=== PATIENT | female | born 1990 | race Caucasian/White ===

== ENCOUNTER 2016-10-28 06:37 | Inpatient (IN) | payer MEDICAID ==
[~2016-10-28] VITALS: Ht 170.2 cm; Wt 75.9 kg
--- NOTE | ~2016-10-28 | OR ---
PATIENT'S NAME: JUAN FONTANEZ [facility] AGE: 26 Y [address] ROOM: [place] [address] LOCATION: [facility] ADMIT DATE: 10/28/2016 OR/Procedure Report DISCHARGE DATE: FAMILY PHYSICIAN: PATRICE VELAZQUEZ MD ATTENDING PHYSICIAN: PATRICE VELAZQUEZ SURGEON: Patrice Velazquez MD [employer]SEM[employer]: DATE OF PROCEDURE: 10/29/2016 DATE OF DELIVERY: 10/29/2016. PREOPERATIVE DIAGNOSES: 1. Intrauterine at 41 weeks and 2 days. 2. Late term . 3. History of genital herpes. POSTOPERATIVE DIAGNOSES: 1. Intrauterine at 41 weeks and 2 days. 2. Late term . 3. History of genital herpes. PROCEDURE PERFORMED: Spontaneous vaginal delivery over intact perineum. ANESTHESIA: Epidural. FINDINGS: Viable female with Apgars of 7 and 9 and weight of 7 pounds, 14 ounces. First-degree perineal laceration. Placenta intact with 3-vessel cord. Bilateral periurethral lacerations. ESTIMATED BLOOD LOSS: 300 mL. COMPLICATIONS: None. INDICATIONS: The patient is a 26-year-old, G1, who presented to Labor and Delivery at 41 weeks and 1 day for induction of labor secondary to late term . She was found to be 250 and -2. She had 25 mcg of Cytotec placed vaginally. Four hours later, she was unchanged, but was stiven. Therefore, Pitocin was started for augmentation. At 1500 hours, she had rupture of membranes of clear fluid and was still unchanged. Pitocin was continued. She then progressed to complete and started maternal expulsive efforts. DESCRIPTION OF PROCEDURE: The patient was placed in dorsal lithotomy position. She was prepped and draped in the usual sterile fashion. With maternal expulsive effort, the head was delivered in the ANGUS position. PATIENT'S NAME: JUAN FONTANEZ [facility] AGE: 26 Y [address] ROOM: [place] [address] LOCATION: [facility] ADMIT DATE: 10/28/2016 OR/Procedure Report DISCHARGE DATE: FAMILY PHYSICIAN: PATRICE VELAZQUEZ MD ATTENDING PHYSICIAN: PATRICE VELAZQUEZ A loose nuchal cord was noted and easily reduced. The anterior shoulder then delivered followed by the remainder of the fetus. The was placed on the mother's abdomen. The cord was clamped and cut. Cord blood was obtained. The placenta was then delivered spontaneously intact with 3-vessel cord. A first-degree laceration was noted. It was repaired in the usual fashion with 3-0 Vicryl. Bilateral periurethral lacerations were noted and each repaired with 1 interrupted suture of 3-0 Vicryl. Instrument, sponge and needle counts were correct at the conclusion of the case. DISPOSITION: Mom stable. Baby in room with mom. MD ECHO PARDO/nathaniel /[id number] d: [birth year] t: 11/13/16 0925, OPERATIVE SUMMARY
[2016-10-28] MEDS ORDERED: TYLENOL EXTRA500 MG PO (08:39)
[2016-10-28] MEDS ORDERED: PRENATAL 1+1)(P1 TAB PO (08:39)
[2016-10-28] MEDS ORDERED: ZANTAC (NON-FO150 MG PO (08:40)
[2016-10-28] MEDS ORDERED: VALTREX1000 MG PO (08:40)
[2016-10-28 09:31] LABS: BASOPHIL % 0.3 %; EOSINOPHIL % 0.4 %; HEMATOCRIT 33.5 % (33.0-46.0); HEMOGLOBIN 11.5 g/dL (11.0-15.0); IMMATURE GRANULOCYTE # 0.1 K/uL (0.0-0.3); IMMATURE GRANULOCYTE % 0.7 %; LYMPHOCYTE # 1.8 K/uL (0.8-4.0); LYMPHOCYTE % 19.9 %; MCH 31.9 pg (27.0-34.0); MCHC 34.3 gm/dL (32.0-36.5); MCV 93.1 fl (83.0-98.0); MONOCYTE # 0.8 K/uL (0.0-1.0); MONOCYTE % 8.7 %; MPV 11.3 fl (9.4-12.4); NEUTROPHIL # (ANC) 6.4 K/uL (1.8-7.8); NRBC % 0 /100WBC (0-0.00); PLATELET COUNT 169 K/uL (150-450); RDW-CV 15.7 % (11.9-14.6); WBC 9.2 K/uL (4.0-11.0)
--- NOTE | 2016-10-28 18:00 | NUR ---
10/28/16 1800: Cytotec'ed this am. Iv Pitocin started @ 1245. Arom @ 1507,1.5 cm/50/-1 w/ arom-clear fluid. Vss,afeb. fhr 120 baseline. Ltv moderate,fhr accels.
--- NOTE | 2016-10-29 05:09 | NUR ---
VSS, fundus firm, lochia small, emptying bladder without difficulty. nothing for pain yet. up and tidy done. Inverted nipples so using shield.
--- NOTE | 2016-10-30 05:05 | NUR ---
VSS, used jacuzzi last night, tender/sore perineum & gave motrin & percocet @ 0410. Voiding without difficulty, fundus firm, lochia small. Using nipple shield for inverted nipples. Works well with infant.
[2016-10-30 05:08] LABS: BASOPHIL % 0.4 %; EOSINOPHIL # 0.1 K/uL (0.0-0.5); EOSINOPHIL % 1.1 %; HEMATOCRIT 32.5 % (33.0-46.0); HEMOGLOBIN 11.1 g/dL (11.0-15.0); IMMATURE GRANULOCYTE # 0.1 K/uL (0.0-0.3); IMMATURE GRANULOCYTE % 0.6 %; LYMPHOCYTE # 2.4 K/uL (0.8-4.0); LYMPHOCYTE % 21.6 %; MCH 32.2 pg (27.0-34.0); MCHC 34.2 gm/dL (32.0-36.5); MCV 94.2 fl (83.0-98.0); MONOCYTE # 0.9 K/uL (0.0-1.0); MONOCYTE % 7.8 %; MPV 10.5 fl (9.4-12.4); NEUTROPHIL # (ANC) 7.6 K/uL (1.8-7.8); NEUTROPHIL % 68.5 %; NRBC % 0 /100WBC (0-0.00); PLATELET COUNT 153 K/uL (150-450); RBC 3.45 M/uL (3.50-5.00); RDW-CV 15.9 % (11.9-14.6); WBC 11.1 K/uL (4.0-11.0)
[2016-10-30] MEDS ORDERED: SURFAK240 MG PO (10:53)
[2016-10-30] MEDS ORDERED: MOTRIN800 MG PO (10:54)
[2016-10-30] MEDS ORDERED: PERCOCET 5-3251 EACH PO (10:54)
--- NOTE | 2016-10-30 14:15 | NUR ---
Introduced self/role to patient, her significant other Osei, her parents and a friend. They plan to do all her follow up care with Dr. Mann in [place]. She had a lot of questions about and lacation consult is not here today. Answered all her questions to the best of my ability. Gave her lacation consultants phone number and information about the support group here. Gave her a list of resources in [place] and [place]. Covered post depression and gave her a hand out. They have all their baby supplies and good transportation. Gave her the number to Medicaid to get baby added. Support systems are her parents and this one friend as she had to cut relationships with past friends due to her past drug addiction. Baby's name is Lilian. Plans to go home today.
--- NOTE | 2016-10-31 10:15 | NUR ---
Romelia from the [facility] called #[phone]. She will be following up with mom and baby at home. Call the cord screen results to abuse hotline.
--- NOTE | 2016-11-02 14:45 | NUR ---
Cord Screen was negative - called hotline and reported to a [place]
== END 2016-10-30 17:35 | disposition disaster alternative care site (69) | DRG 774 ==
LOC: GOBS 06:37 → GOBM 06:37 → GOBS 15:40
PROVIDERS: ADMIT Obstetrics & Gynecology
DX: O48.0 Post-term pregnancy (principal); O98.32 Other infections with a predominantly sexual mode of transmission complicating childbirth; O70.0 First degree perineal laceration during delivery; O71.82 Other specified trauma to perineum and vulva; O69.81X0 Labor and delivery complicated by cord around neck, without compression, not applicable or unspecified; A60.04 Herpesviral vulvovaginitis; Z3A.41 41 weeks gestation of pregnancy; Z37.0 Single live birth; Z79.899 Other long term (current) drug therapy
CPT/HCPCS: J2001; J2590; J3010; J7120